=== PATIENT | male | born 1950 | race Caucasian/White ===

== ENCOUNTER 2021-05-21 09:12 | Inpatient (IN) | payer MEDICARE ==
[~2021-05-21] VITALS: Ht 177.8 cm; Wt 81.0 kg
[2021-05-21 10:08] LABS: EOSINOPHILS % (AUTO) 0.1 % (0-6); LYMPHOCYTES # (AUTO) 0.4 X10'3 (1.1-4.8)
[2021-05-21 10:10] LABS: BASOPHILS % (AUTO) 0.2 % (0-1); HEMATOCRIT 40.4 % (42.0-52.0); LYMPHOCYTES % (AUTO) 4.9 % (21-51); MEAN CORPUSCULAR HEMOGLOBIN 29.1 PG (27.0-31.0); MEAN CORPUSCULAR HGB CONC 32.3 g/dL (33.0-36.5); MEAN CORPUSCULAR VOLUME 90.3 FL (78-98); MEAN PLATELET VOLUME 9.2 FL (7.4-10.4); MONOCYTES # (AUTO) 0.8 X10'3 (0-0.9); MONOCYTES % (AUTO) 9.5 % (2-12); NEUTROPHILS # (AUTO) 6.9 X10'3 (1.8-7.7); NEUTROPHILS % (AUTO) 85.3 % (42-75); PLATELET COUNT 268 X10'3 (140-440); RED BLOOD COUNT 4.47 X10'6 (4.70-6.10); RED CELL DISTRIBUTION WIDTH 18.9 % (11.5-14.5)
[2021-05-21 10:14] LABS: APTT 27 SECONDS (22-32)
[2021-05-21 10:25] LABS: ALANINE AMINOTRANSFERASE 34 U/L (12-78); ALBUMIN 2.3 G/DL (3.4-5.0); ALBUMIN/GLOBULIN RATIO 0.4 (1.1-1.5); ALKALINE PHOSPHATASE 111 IU/L (46-116); ASPARTATE AMINO TRANSFERASE 55 U/L (10-37); BILIRUBIN,TOTAL 0.6 MG/DL (0.1-1.0); BLOOD UREA NITROGEN 20 MG/DL (7-18); CALCIUM 8.9 MG/DL (8.5-10.1); CHLORIDE 95 MMOL/L (99-107); GLUCOSE 114 MG/DL (70-104); TOTAL PROTEIN 7.7 G/DL (6.4-8.2)
[2021-05-21 10:26] LABS: ABG BASE EXCESS 7.8 mmol/L (-2.0-2.0); ABG HCO3 31.6 mmol/L (22.0-26.0); ABG OXYGEN SATURATION 86.9 % (94-97); ABG PCO2 (T) 40.9 mmHg (35.0-48.0); ABG PO2 (T) 50.7 mmHg (75.0-100.0); ALLEN'S TEST POSITIVE; FCOHb 2.4 % (0.0-3.9); FMetHb 0.2 % (0.0-1.5); FO2Hb 84.6 % (94-97); PATIENT TEMPERATURE 36.9; TOTAL HEMOGLOBIN 13.6 G/dl (14.0-18.0)
[2021-05-21 10:27] LABS: ANION GAP 6 (8-16); BUN/CREATININE RATIO 15.4 (5.4-32.0); SODIUM 137 MMOL/L (135-145); TOTAL CARBON DIOXIDE 35.6 MMOL/L (24-32); eGFR 54 ML/MIN
[2021-05-21 10:29] LABS: PLATELET ESTIMATE NORMAL; POTASSIUM 2.7 MMOL/L (3.5-5.1)
[2021-05-21 10:31] LABS: ANISOCYTOSIS 2+; LARGE PLATELETS FEW
[2021-05-21] MEDS ORDERED: iohexol 350MG/ML 100ml bottle IV ONE (10:49)
[2021-05-21] MEDS ORDERED: furosemide 10 MG/1 ML 10ml inj IV ONE (11:30)
[2021-05-21] MEDS ORDERED: heparin 10,000 units/1 ML INJ IV PRN (13:15)
[2021-05-21] MEDS ORDERED: heparin 10,000 units/1 ML INJ IV ONE ×2 (13:15→13:30)
[2021-05-21] MEDS ORDERED: heparin 25,000 UNIT/250ml bag 250 ML IV SCH (13:15)
[2021-05-21] MEDS ORDERED: potassium Cl 20 mEq SR tablet PO ONE (13:15)
[2021-05-21] MEDS ORDERED: magnesium 2GM in 50ml NS 50 ML IV SCH (13:15)
[2021-05-21] MEDS ORDERED: magnesium 2GM in 50ml NS 50 ML IV PRN (13:35)
[2021-05-21] MEDS ORDERED: HYDROmorphone/PF 0.2 MG/ML SYRINGE IV PRN (13:35)
[2021-05-21] MEDS ORDERED: ondansetron/PF 4mg/2ml inj IV PRN (13:35)
[2021-05-21] MEDS ORDERED: HYDROcodone/acetaminophen 5mg/325mg tablet PO PRN (13:35)
[2021-05-21] MEDS ORDERED: PERFLUTREN PROTEIN-A MICROSPHR (Optison) 0.22 MG/ML 3ML VIAL IV ONE (13:35)
[2021-05-21] MEDS ORDERED: potassium Cl 20 mEq SR tablet PO PRN ×2 (13:35)
[2021-05-21] MEDS ORDERED: ondansetron 4mg rapidly disintigrating tab PO PRN (13:35)
[2021-05-21] MEDS ORDERED: magnesium hydroxide 30ml (MOM) UD suspension PO PRN (13:35)
[2021-05-21] MEDS ORDERED: acetaminophen 650mg rectal suppository RC PRN (13:35)
[2021-05-21] MEDS ORDERED: magnesium 4gm in 100ml NS 100 ML IV PRN (13:35)
[2021-05-21] MEDS ORDERED: magnesium Cl slow-release 64mg tablet PO PRN (13:35)
[2021-05-21] MEDS ORDERED: metoclopramide 5 mg/ml inj IV PRN (13:35)
[2021-05-21] MEDS ORDERED: potassium CL 10mEq/100ml bag 100 ML IV PRN (13:35)
[2021-05-21] MEDS ORDERED: normal saline 1000ml 1,000 ML IV SCH (13:35)
[2021-05-21] MEDS ORDERED: acetaminophen 325mg tablet PO PRN ×2 (13:35)
[2021-05-21] MEDS ORDERED: mag hydrox/Alum hydrox/simeth 30ml oral suspension PO PRN (13:35)
[2021-05-21] MEDS ORDERED: bisacodyl 10mg suppository rectal RC PRN (13:35)
[2021-05-21] MEDS ORDERED: HYDROcodone/acetaminophen 10/325mg tab PO PRN (13:35)
[2021-05-21] MEDS ORDERED: HYDROmorphone inj. 0.5 MG/0.5 ML DISP.SYRIN IV PRN (13:35)
[2021-05-21] MEDS ORDERED: LISI10TA27 PO (13:52)
[2021-05-21] MEDS ORDERED: METO-384 PO (13:52)
[2021-05-21] MEDS ORDERED: FURO40TA4 PO (13:52)
[2021-05-21 13:55] VITALS: BP 134/90
[2021-05-21 13:58] LABS: BASOPHILS % (AUTO) 0.2 % (0-1); EOSINOPHILS % (AUTO) 0.1 % (0-6); HEMATOCRIT 39.7 % (42.0-52.0); HEMOGLOBIN 12.7 g/dl (14.0-17.9); LYMPHOCYTES # (AUTO) 0.4 X10'3 (1.1-4.8); LYMPHOCYTES % (AUTO) 5.5 % (21-51); MEAN CORPUSCULAR HGB CONC 31.9 g/dL (33.0-36.5); MEAN PLATELET VOLUME 8.7 FL (7.4-10.4); MONOCYTES # (AUTO) 0.9 X10'3 (0-0.9); MONOCYTES % (AUTO) 11.5 % (2-12); NEUTROPHILS # (AUTO) 6.2 X10'3 (1.8-7.7); NEUTROPHILS % (AUTO) 82.7 % (42-75); PLATELET COUNT 232 X10'3 (140-440); RED BLOOD COUNT 4.36 X10'6 (4.70-6.10); RED CELL DISTRIBUTION WIDTH 18.8 % (11.5-14.5); WHITE BLOOD COUNT 7.4 X10'3 (4.5-11.0)
[2021-05-21 14:05] VITALS: BP 135/97
[2021-05-21 14:19] LABS: MAGNESIUM 1.8 MG/DL (1.5-2.4)
[2021-05-21 14:55] LABS: BFSOURCE RIGHT PLEURAL FLD
[2021-05-21] MEDS ORDERED: LORazepam 0.5 MG tablet PO PRN (14:55)
[2021-05-21 15:24] LABS: GLUCOSE,BODY FLUID 115 MG/DL; LDH,BODY FLUID 77 U/L; TOTAL PROTEIN,BODY FLUID 2.3 G/DL
[2021-05-21 15:31] LABS: LYMPHOCYTES,BODY FLUID 24 %; MONOCYTES,BODY FLUID 4 %; NEUTROPHILS,BODY FLUID 72 %
[2021-05-21 15:33] LABS: BFAPPEAR CLOUDY
[2021-05-21 15:37] LABS: BF RBC COUNT 1525 /CU MM; BF WBC COUNT 265 /CU MM (0-1000); BFCOLOR YELLOW; BFVOLUME 52 ML
[2021-05-21] MEDS ORDERED: labetalol 20mg/4ml (5mg/ml) syringe IV ONE (16:35)
[2021-05-21 16:45] VITALS: BP 116/89
[2021-05-21] MEDS: potassium CL 10mEq/100ml bag 100 ML IV SCH ×2 (16:49→18:28)
[2021-05-21 18:00] VITALS: BP 115/81
[2021-05-21] MEDS: K and/or MAG REPLACEMENT MC SCH (20:00)
[2021-05-21] MEDS: metoprolol tartrate 12.5mg (1/2 tablet) PO SCH ×2 (20:00→20:53)
[2021-05-21] MEDS: docusate sod 100mg capsule PO SCH (20:52)
[2021-05-21] MEDS: potassium Cl 20 mEq SR tablet PO SCH (20:52)
[2021-05-21] MEDS: furosemide 40mg/4ml inj IV SCH (20:54)
[2021-05-21] MEDS: CefTRIAXone/D5W-Rocephin 1gm 50 ML IV SCH (20:55)
[2021-05-21] MEDS ORDERED: temazepam 15mg capsule PO PRN (21:00)
[2021-05-21 22:00] VITALS: BP 98/69
[2021-05-22 02:00] VITALS: BP 160/70
[2021-05-22 06:00] VITALS: BP 127/82
[2021-05-22 06:59] LABS: BASOPHILS % (AUTO) 0.2 % (0-1); EOSINOPHILS % (AUTO) 0.1 % (0-6); HEMATOCRIT 36.5 % (42.0-52.0); HEMOGLOBIN 11.8 g/dl (14.0-17.9); LYMPHOCYTES # (AUTO) 0.6 X10'3 (1.1-4.8); LYMPHOCYTES % (AUTO) 7.1 % (21-51); MEAN CORPUSCULAR HEMOGLOBIN 29.2 PG (27.0-31.0); MEAN CORPUSCULAR HGB CONC 32.2 g/dL (33.0-36.5); MEAN CORPUSCULAR VOLUME 90.6 FL (78-98); MEAN PLATELET VOLUME 9.3 FL (7.4-10.4); MONOCYTES # (AUTO) 0.8 X10'3 (0-0.9); MONOCYTES % (AUTO) 8.6 % (2-12); NEUTROPHILS # (AUTO) 7.5 X10'3 (1.8-7.7); PLATELET COUNT 227 X10'3 (140-440); RED BLOOD COUNT 4.03 X10'6 (4.70-6.10); RED CELL DISTRIBUTION WIDTH 18.9 % (11.5-14.5); WHITE BLOOD COUNT 8.9 X10'3 (4.5-11.0)
[2021-05-22 07:22] LABS: ALANINE AMINOTRANSFERASE 29 U/L (12-78); ALBUMIN/GLOBULIN RATIO 0.4 (1.1-1.5); ALKALINE PHOSPHATASE 98 IU/L (46-116); ANION GAP 6 (8-16); ASPARTATE AMINO TRANSFERASE 44 U/L (10-37); BILIRUBIN,TOTAL 0.4 MG/DL (0.1-1.0); BLOOD UREA NITROGEN 24 MG/DL (7-18); BUN/CREATININE RATIO 19.5 (5.4-32.0); CALCIUM 8.6 MG/DL (8.5-10.1); CHLORIDE 95 MMOL/L (99-107); CHOL/HDL RATIO 2.2 (0.00-4.99); CHOLESTEROL 108 MG/DL (0-200); CREATININE 1.23 MG/DL (0.60-1.10); GLUCOSE 118 MG/DL (70-104); HDL CHOLESTEROL 50 MG/DL (35-60); LDL CHOLESTEROL 46 MG/DL (50-100); MAGNESIUM 1.8 MG/DL (1.5-2.4); SODIUM 138 MMOL/L (135-145); TOTAL CARBON DIOXIDE 36.9 MMOL/L (24-32); TOTAL PROTEIN 6.8 G/DL (6.4-8.2); TRIGLYCERIDES 75 MG/DL (20-135); eGFR 58 ML/MIN
[2021-05-22] MEDS: docusate sod 100mg capsule PO SCH ×2 (07:58→19:12)
[2021-05-22] MEDS: potassium Cl 20 mEq SR tablet PO SCH (07:59)
[2021-05-22] MEDS: furosemide 40mg/4ml inj IV SCH ×2 (07:59→19:12)
[2021-05-22] MEDS: metoprolol tartrate 12.5mg (1/2 tablet) PO SCH ×2 (07:59→19:13)
[2021-05-22] MEDS: CefTRIAXone/D5W-Rocephin 1gm 50 ML IV SCH (08:00)
[2021-05-22 08:44] LABS: ANISOCYTOSIS 2+; PLATELET ESTIMATE NORMAL; POLYCHROMASIA 1+
[2021-05-22 11:00] VITALS: BP 104/70
[2021-05-22 11:18] LABS: CLARITY,URINE CLEAR (Clear); COLOR,URINE YELLOW (Yellow); GLUCOSE, URINE NEGATIVE (Neg); KETONES,URINE NEGATIVE (Neg); LEUKOCYTE ESTERASE ,URINE NEGATIVE (Neg); NITRITES, URINE NEGATIVE (Neg); OCCULT BLOOD,URINE NEGATIVE (Neg); PH,URINE 5.5 (4.8-8.0); PROTEIN,URINE NEGATIVE (Neg)
[2021-05-22 11:29] LABS: URINE AMPHETAMINE SCREEN NEGATIVE (Neg); URINE BARBITUATE SCREEN NEGATIVE (Neg); URINE BENZODIAZEPINES SCREEN NEGATIVE (Neg); URINE CANNABINOID SCREEN NEGATIVE (Neg); URINE COCAINE SCREEN POSITIVE (Neg); URINE METHADONE SCREEN NEGATIVE (Neg); URINE OPIATE SCREEN NEGATIVE (Neg); URINE PHENCYCLIDINE SCREEN NEGATIVE (Neg)
[2021-05-22 11:33] LABS: UA COLLECTION TYPE NON-SPECIFIED
[2021-05-22 15:00] VITALS: BP 108/80
[2021-05-22 16:04] LABS: ANION GAP 2 (8-16); BLOOD UREA NITROGEN 25 MG/DL (7-18); BUN/CREATININE RATIO 18.2 (5.4-32.0); CALCIUM 8.8 MG/DL (8.5-10.1); CHLORIDE 92 MMOL/L (99-107); CREATININE 1.37 MG/DL (0.60-1.10); GLUCOSE 168 MG/DL (70-104); POTASSIUM 3.7 MMOL/L (3.5-5.1); SODIUM 132 MMOL/L (135-145); TOTAL CARBON DIOXIDE 38.5 MMOL/L (24-32); eGFR 51 ML/MIN
[2021-05-22 18:00] VITALS: BP 114/90
--- NOTE | 2021-05-22 18:10 | NUR ---
Patient in room PCU 3021. I have received report from Henok MARTIN and had the opportunity to ask questions and assume patient care.
[2021-05-22] MEDS: K and/or MAG REPLACEMENT MC SCH (20:00)
[2021-05-22 21:00] VITALS: BP 103/76
[2021-05-22] MEDS ORDERED: benzonatate 100mg capsule PO PRN (21:25)
--- NOTE | 2021-05-22 21:26 | NUR ---
Dr. Dickey paged. new orders given for cough. will continue to monitor.
--- NOTE | 2021-05-22 23:00 | NUR ---
Keli paged: "3021 kramer 3/4 respiratory failure and L pleural effusion. c/o shortness of breath. can he get respiratory treatments ordered. " will continue to monitor
[2021-05-23 01:51] VITALS: BP 117/80
--- NOTE | 2021-05-23 02:59 | NUR ---
blankets, pulse ox and oxygen off pt. returned to pt. pt reoriented and now 94% on 4 L
[2021-05-23 06:00] VITALS: BP 117/74
--- NOTE | 2021-05-23 06:17 | NUR ---
Problems reprioritized. Patient report given, questions answered & plan of care reviewed with Henok MARTIN.
[2021-05-23 06:24] LABS: BASOPHILS # (AUTO) 0.1 X10'3 (0-0.2); BASOPHILS % (AUTO) 0.6 % (0-1); EOSINOPHILS % (AUTO) 0 % (0-6); HEMATOCRIT 38.9 % (42.0-52.0); HEMOGLOBIN 12.3 g/dl (14.0-17.9); LYMPHOCYTES # (AUTO) 1.4 X10'3 (1.1-4.8); LYMPHOCYTES % (AUTO) 14.1 % (21-51); MEAN CORPUSCULAR HEMOGLOBIN 28.8 PG (27.0-31.0); MEAN CORPUSCULAR HGB CONC 31.7 g/dL (33.0-36.5); MEAN CORPUSCULAR VOLUME 90.9 FL (78-98); MEAN PLATELET VOLUME 9.7 FL (7.4-10.4); MONOCYTES # (AUTO) 0.6 X10'3 (0-0.9); MONOCYTES % (AUTO) 6.2 % (2-12); NEUTROPHILS # (AUTO) 7.7 X10'3 (1.8-7.7); NEUTROPHILS % (AUTO) 79.1 % (42-75); PLATELET COUNT 233 X10'3 (140-440); RED BLOOD COUNT 4.28 X10'6 (4.70-6.10); RED CELL DISTRIBUTION WIDTH 18.8 % (11.5-14.5); WHITE BLOOD COUNT 9.8 X10'3 (4.5-11.0)
[2021-05-23] MEDS: furosemide 40mg/4ml inj IV SCH (07:52)
[2021-05-23] MEDS: metoprolol tartrate 12.5mg (1/2 tablet) PO SCH (07:52)
[2021-05-23] MEDS: docusate sod 100mg capsule PO SCH (07:53)
[2021-05-23] MEDS: potassium Cl 20 mEq SR tablet PO SCH (07:53)
[2021-05-23 08:00] LABS: ALANINE AMINOTRANSFERASE 138 U/L (12-78); ALBUMIN 2.1 G/DL (3.4-5.0); ALBUMIN/GLOBULIN RATIO 0.4 (1.1-1.5); ALKALINE PHOSPHATASE 154 IU/L (46-116); ASPARTATE AMINO TRANSFERASE 486 U/L (10-37); BILIRUBIN,TOTAL 0.5 MG/DL (0.1-1.0); BLOOD UREA NITROGEN 30 MG/DL (7-18); BUN/CREATININE RATIO 19.6 (5.4-32.0); CREATININE 1.53 MG/DL (0.60-1.10); GLUCOSE 111 MG/DL (70-104); MAGNESIUM 1.9 MG/DL (1.5-2.4); TOTAL PROTEIN 7.4 G/DL (6.4-8.2); eGFR 45 ML/MIN
[2021-05-23] MEDS: CefTRIAXone/D5W-Rocephin 1gm 50 ML IV SCH (08:17)
--- NOTE | 2021-05-23 10:08 | NUR ---
Dr. Nichols order oxigen evaluation in ambulation. Saturation sitted was 88% , standing was 79 %, laydown 91%. Patient refer darek. Can't walk without oxygen at this moment.
--- NOTE | 2021-05-23 10:29 | NUR ---
O2 Sat at rest on room air:_88__% If below 89%: Recovery O2 Sat at rest on __2_LPM:_92__%:___% via nasal canula (mask/nasal cannula, etc..) No further documentation is necessary. If O2 Sat did not drop below 89% on room air,ambulate patient on room air. O2 Sat while ambulating on room air:___% Recovery O2 Sat while ambulating on ___LPM:___% No further documentation is necessary. If patient does not drop below 89% while ambulating, he/she does not qualify for home O2.
[2021-05-23] MEDS ORDERED: LISI10TA27 PO (10:31)
[2021-05-23] MEDS ORDERED: APIX5TAB3 PO (10:31)
[2021-05-23] MEDS ORDERED: LOP12.5T PO (10:31)
[2021-05-23] MEDS ORDERED: CEFD300C3 PO (10:31)
[2021-05-23] MEDS ORDERED: FURO40TA4 PO (10:31)
[2021-05-23] MEDS ORDERED: POTA10TA37 PO (10:31)
[2021-05-23 11:00] VITALS: BP 149/69
[2021-05-23 13:20] LABS: POTASSIUM 4.3 MMOL/L (3.3-5.1)
== END 2021-05-23 13:21 | disposition home health service (06) | DRG 193 ==
LOC: ER 09:14 → ED HOLD 13:39 → EDBEDREQ 15:26 → PCU 3S 16:30
PROVIDERS: ADMIT Family Medicine; ATTEND Family Medicine
PROC: 0W993ZZ Drainage of Right Pleural Cavity, Percutaneous Approach (ICD-10-PCS; principal; 2021-05-21)
PROC: B32T1ZZ Computerized Tomography (CT Scan) of Left Pulmonary Artery using Low Osmolar Contrast (ICD-10-PCS; 2021-05-21)
PROC: B3201ZZ Computerized Tomography (CT Scan) of Thoracic Aorta using Low Osmolar Contrast (ICD-10-PCS; 2021-05-21)
PROC: B32S1ZZ Computerized Tomography (CT Scan) of Right Pulmonary Artery using Low Osmolar Contrast (ICD-10-PCS; 2021-05-21)
DX: J18.9 Pneumonia, unspecified organism (principal); I50.31 Acute diastolic (congestive) heart failure; I21.A1 Myocardial infarction type 2; J96.01 Acute respiratory failure with hypoxia; E87.1 Hypo-osmolality and hyponatremia; E87.4 Mixed disorder of acid-base balance; R18.8 Other ascites; J91.8 Pleural effusion in other conditions classified elsewhere; Z20.822 Contact with and (suspected) exposure to COVID-19; R00.0 Tachycardia, unspecified; D64.9 Anemia, unspecified; E87.6 Hypokalemia; N62 Hypertrophy of breast; F14.90 Cocaine use, unspecified, uncomplicated; I48.91 Unspecified atrial fibrillation; J32.0 Chronic maxillary sinusitis; N18.30 Chronic kidney disease, stage 3 unspecified; N63.10 Unspecified lump in the right breast, unspecified quadrant; R29.6 Repeated falls; F17.210 Nicotine dependence, cigarettes, uncomplicated; Z91.81 History of falling; Z72.89 Other problems related to lifestyle; Z71.41 Alcohol abuse counseling and surveillance of alcoholic; Z71.51 Drug abuse counseling and surveillance of drug abuser; Z71.6 Tobacco abuse counseling
CPT/HCPCS: 32555; 36415; 36600; 70450; 71275; 80048; 80053; 80061; 80305; 81003; 82803; 82945; 83605; 83615; 83735; 83880; 83986; 84132; 84145; 84157; 84484; 85008; 85018; 85025; 85610; 85730; 87040; 87070; 87635; 89051; 93005; 93306; 99291; C9803; G0378; J0696; J1940; J3480; J3490; J7030; Q9967

== ENCOUNTER 2021-08-11 07:23 | Day surgery (SDC) | payer MEDICARE, OTHER ==
[~2021-08-11] VITALS: Ht 180.3 cm; Wt 81.6 kg
[~2021-08-11 07:23] MED LIST: APIX5TAB3 PO; FURO40TA4 PO; LISI10TA27 PO; LOP12.5T PO; POTA10TA37 PO
[2021-08-11] MEDS ORDERED: albumin 25% 100mL bottle x 1 IV PRN (07:50)
[2021-08-11] MEDS ORDERED: TRAZ-251 PO (08:21)
[2021-08-11] MEDS ORDERED: IBUP-1985 PO (08:21)
[2021-08-11] MEDS ORDERED: ZINC220C7 (08:21)
[2021-08-11] MEDS ORDERED: CARV-49 PO (08:21)
[2021-08-11] MEDS ORDERED: COLL30OI TOP (08:21)
[2021-08-11] MEDS ORDERED: QUET150T2 PO (08:21)
[2021-08-11] MEDS ORDERED: FLO0.4C PO (08:21)
[2021-08-11] MEDS ORDERED: DOCU100C40 PO (08:21)
[2021-08-11] MEDS ORDERED: GABA300C PO (08:21)
[2021-08-11] MEDS ORDERED: MULT-1085 PO (08:21)
[2021-08-11] MEDS ORDERED: SENN-263 PO (08:21)
[2021-08-11] MEDS ORDERED: AMIO200T62 PO (08:21)
[2021-08-11] MEDS ORDERED: POTA-205 PO (08:21)
[2021-08-11] MEDS ORDERED: FURO40TA4 PO (08:21)
[2021-08-11] MEDS ORDERED: MIDO10TA PO (08:21)
[2021-08-11] MEDS ORDERED: ACET325C6 (08:21)
[2021-08-11] MEDS ORDERED: MELA3TAB70 PO (08:21)
[2021-08-11 09:12] VITALS: BP 142/84
[2021-08-11] MEDS ORDERED: LIDOcaine 1%/PF 5ML 10 MG/ML VIAL IJ ONE (09:35)
[2021-08-11 09:46] VITALS: BP 144/80
[2021-08-11 10:01] VITALS: BP 138/80
[2021-08-11 10:16] VITALS: BP 130/65
[2021-08-11 10:31] VITALS: BP 144/78
== END 2021-08-11 11:40 | disposition home or self-care (01) ==
LOC: SSTAY O 07:23
PROVIDERS: ATTEND Radiology Vascular & Interventional Radiology
DX: K70.31 Alcoholic cirrhosis of liver with ascites (principal); I25.5 Ischemic cardiomyopathy; I48.91 Unspecified atrial fibrillation; Z79.899 Other long term (current) drug therapy
CPT/HCPCS: 49083; J3490